=== PATIENT | male | born 1980 | race Caucasian/White ===

== ENCOUNTER 2022-03-23 09:07 | Outpatient (CLI) | payer OTHER ==
--- NOTE | 2022-03-23 12:49 | MRI Report ---
PROCEDURE: Thoracic Spine W/O INDICATIONS: DORSALGIA, CERVICALGIA TECHNIQUE: Noncontrast sagittal T1 spine echo and T2 fast spin echo, sagittal STIR, axial T1 and T2 fast spin ec ho through the thoracic spine. COMPARISON: None. FINDINGS: Image quality: Excellent. Alignment and Curvature: There is normal bony alignment. Bone Marrow: Marrow is of normal overall signal. No acute vertebral body compression fractures. Spinal Cord: Visualized spinal cord is normal in size and signal. Regional Soft Tissues: No paravertebral masses. Miscellaneous: There are a few shallow disc bulges which flatten and slightly indent the ventral thec al sac without mass effect on the cord. No spinal canal or neural foraminal stenosis in the thoracic spine. IMPRESSION: Neural spinal canal or neural foraminal stenosis. Reviewed by: Scott Navas MD on 03/23/2022 12:48 PM PDT Approved by: Scott Navas MD on 03/23/2022 12:48 PM PDT Station ID: [id number]
--- NOTE | 2022-03-23 12:56 | MRI Report ---
PROCEDURE: Cervical Spine W/O INDICATIONS: DORSALGIA, CERVICALGIA TECHNIQUE: Noncontrast sagittal T1 spin echo and T2 fast spin echo, sagittal STIR, foraminal oblique sagittal T2 fast spin echo, and axial gradient echo or T2 fast spin echo through the cervical spine. COMPARISON: None. FINDINGS: Straightening and reversal of usual cervical lordosis. Otherwise normal alignment. Vertebral body hei ghts maintained. No suspicious focal marrow signal abnormality or bone marrow edema. Normal morpholog y and signal intensity of the cervical cord. There is no syrinx. Regional soft tissues are unremarkab le. C2-C3: Normal in appearance. C3-C4: Normal in appearance. C4-C5: Mild bilateral neural foraminal narrowing due to facet and uncovertebral hypertrophy. No spin al canal stenosis. C5-C6: Moderate right and mild left neural foraminal narrowing due to facet and uncovertebral hypert rophy. No spinal canal stenosis. C6-C7: Moderate right and mild left or neural foraminal stenosis due to facet and uncovertebral hype rtrophy. No spinal canal stenosis. C7-T1: No spinal canal or neural foraminal stenosis. IMPRESSION: Moderate neural foraminal narrowing on the right at C5-C6 and C6-C7. Correlate for any corresponding radicular symptoms. Reviewed by: Scott Navas MD on 03/23/2022 12:55 PM PDT Approved by: Scott Navas MD on 03/23/2022 12:55 PM PDT Station ID: [id number]
== END 2022-03-23 09:08 | disposition home or self-care (01) ==
LOC: DI 09:07
PROVIDERS: ATTEND Physician Assistant
DX: M47.812 Spondylosis without myelopathy or radiculopathy, cervical region (principal); M48.02 Spinal stenosis, cervical region